=== PATIENT | male | born 1960 | race Caucasian/White ===

== ENCOUNTER 2017-09-17 11:19 | Emergency (ER) | payer BC, OTHER ==
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
[2017-09-17] MEDS ORDERED: Tetracaine HCl/PF 0.5% 4 ML Bottle EYEBOTH ONE (11:23)
[2017-09-17] MEDS ORDERED: Sodium Chloride 0.9% 10 ML Syringe FLUSH PRN (11:23)
[2017-09-17] MEDS ORDERED: Lactated Ringers 1,000 ML IV ONE (11:23)
[2017-09-17] MEDS ORDERED: Sodium Chloride 0.9% 1,000 ML ONE ×2 (11:24)
[2017-09-17 11:55] LABS: CHLORIDE,CL 107 mmol/L (98-107); SODIUM,NA 140 mmol/L (136-145)
[2017-09-17 14:36] VITALS: BP 142/99
== END 2017-09-17 13:25 ==
LOC: LL.ED 11:19 → MERGE 11:19 → LL.ED 13:25
DX: T20.10XA Burn of first degree of head, face, and neck, unspecified site, initial encounter (principal); H83.3X3 Noise effects on inner ear, bilateral; M15.0 Primary generalized (osteo)arthritis; R00.1 Bradycardia, unspecified; R03.0 Elevated blood-pressure reading, without diagnosis of hypertension; Z71.6 Tobacco abuse counseling
CPT/HCPCS: 36415; 80053; 83605; 85025; 96360; 99285; A9270; J7030; J7120